=== PATIENT | female | born 1995 | race Two or more races ===

== ENCOUNTER 2022-03-10 17:45 | Emergency (ER) | payer MEDICAID ==
[~2022-03-10] VITALS: Ht 157.5 cm; Wt 58.0 kg
[2022-03-10 21:55] LABS: BASOPHILS % (AUTO) 0.4 % (0.0-2.0); HEMATOCRIT 39.9 % (36-46); HEMOGLOBIN 13.2 g/dL (12.0-16.0); LYMPHOCYTES # (AUTO) 2.6 K/uL (1.0-4.8); MEAN CORPUSCULAR HEMOGLOBIN 28.3 pg (26.0-34.0); MEAN CORPUSCULAR VOLUME 86 fL (80-100); MONOCYTES # (AUTO) 0.5 K/uL (0.1-1.0); MONOCYTES % (AUTO) 5.7 % (2.0-9.0); NEUTROPHILS # (AUTO) 4.9 K/uL (1.8-7.7); NEUTROPHILS % (AUTO) 60.9 % (40.0-70.0); PLATELET COUNT (AUTO) 433 K/uL (150-450); RED BLOOD CELL COUNT(AUTO) 4.66 MIL/uL (4.00-5.20); RED CELL DISTRIBUTION WIDTH 18.1 % (11.5-14.5)
[2022-03-10 22:14] LABS: ANION GAP 6 mmol/L (8-16); CALCIUM, TOTAL 9.1 mg/dL (8.8-10.5); CARBON DIOXIDE 31 mmol/L (22-29); CHLORIDE 98 mmol/L (98-107); CREATININE 0.79 mg/dL (0.60-1.30); GLUCOSE,RANDOM 82 mg/dL (70-110); POTASSIUM 3.3 mmol/L (3.5-5.1); SODIUM SERUM 135 mmol/L (136-145); UREA NITROGEN, BLOOD 9 mg/dL (7-18)
[2022-03-10 22:22] LABS: GLOMERULAR FILTR. RATE CALC > 60 mL/min (>60)
[2022-03-10 22:26] LABS: ALANINE AMINOTRANSFERASE 25 U/L (12-78); ALKALINE PHOSPHATASE 49 U/L (46-116); ASPARTATE AMINOTRANSFERASE 22 U/L (15-37); BILIRUBIN,TOTAL 0.3 mg/dL (0.1-1.0); HCG,QUANTITATIVE < 1 mIU/mL (0-6); TOTAL PROTEIN, SERUM 7.1 g/dL (6.4-8.2)
[2022-03-10 22:36] LABS: SALICYLATE 1.8 mg/dL (2.8-20.0)
[2022-03-10 22:37] LABS: ACETAMINOPHEN < 2 mcg/mL (10-30)
[2022-03-10 22:38] LABS: AMPHET/METH SCREEN,URINE POSITIVE (NEGATIVE); BARBITURATE SCREEN, URINE NEGATIVE (NEGATIVE); BENZODIAZEPINES SCREEN,URINE NEGATIVE (NEGATIVE); CANNABINOID SCREEN,URINE POSITIVE (NEGATIVE); COCAINE SCREEN,URINE NEGATIVE (NEGATIVE); METHADONE SCREEN, URINE NEGATIVE (NEGATIVE); OPIATE SCREEN,URINE NEGATIVE (NEGATIVE)
[2022-03-10 22:41] LABS: PHENCYCLIDINE SCREEN,URINE NEGATIVE (NEGATIVE)
[2022-03-11 03:55] VITALS: BP 113/64
[2022-03-11 04:30] LABS: COVID AG,FIA SOURCE NASAL SWAB
== END 2022-03-11 06:47 | disposition home or self-care (01) ==
LOC: EMS 17:45 → EDBD 17:45 → EMS 03-11 06:47
DX: R45.1 Restlessness and agitation (principal); Z20.822 Contact with and (suspected) exposure to COVID-19; F15.10 Other stimulant abuse, uncomplicated; F20.9 Schizophrenia, unspecified
CPT/HCPCS: 99283; 87426; 80053; 84702; 85025; 36415; 80307; G0480; 51701; G0481

== ENCOUNTER 2023-05-19 13:12 | Inpatient (IN) | payer MEDICAID ==
[~2023-05-19] VITALS: Ht 157.5 cm; Wt 97.5 kg
[2023-05-19] MEDS ORDERED: HALOPERIDOL 5 MG TABLET PO PRN (14:45)
[2023-05-19] MEDS ORDERED: ZOLPIDEM TARTRATE 10 MG TABLET PO PRN (14:45)
[2023-05-19 15:13] VITALS: RESP 18
[2023-05-19] MEDS ORDERED: INFLUENZA VIRUS VACCINE QVS 2023-24 (6MO+)/PF 60 MCG/0.5 ML SYRINGE IM. ONE (15:30)
[2023-05-19 17:47] VITALS: RESP 19
[2023-05-19 21:00] VITALS: RESP 18
[2023-05-20] VITALS (7 sets, daily range): BP systolic 111–154; BP diastolic 68–96; PULSE 100–125; RESP 16–19; TEMP 97.8–98; O2SAT 95–98
[2023-05-20] MEDS: CEPHALEXIN MONOHYDRATE 500 MG CAPSULE PO SCH ×3 (10:01→16:32)
[2023-05-20] MEDS ORDERED: QUET400T13 PO (10:09)
[2023-05-20] MEDS ORDERED: BUSP10TA23 PO (10:09)
[2023-05-20] MEDS: BusPIRone HCL 10 MG TABLET PO SCH ×2 (10:56→16:32)
[2023-05-20] MEDS ORDERED: MAGN500T4 PO (12:09)
[2023-05-20] MEDS ORDERED: CLON0.1T PO (12:09)
[2023-05-20] MEDS ORDERED: CHOL500013 PO (12:09)
[2023-05-20] MEDS ORDERED: MAG HYDROX/ALUMINUM HYD/SIMETH ES 30 ML SUSPENSION UDCUP PO PRN (12:15)
[2023-05-20] MEDS ORDERED: ONDANSETRON HCL 4 MG TABLET PO PRN (12:15)
[2023-05-20] MEDS ORDERED: ALBUTEROL SULFATE HFA 90 MCG/PUFF 8 GM INHALER IH PRN (12:15)
[2023-05-20] MEDS ORDERED: GuaiFENesin/D-METHORPHAN [SUGAR-FREE] 200-20MG/10 ML SYRUP UDCUP PO PRN (12:15)
[2023-05-20] MEDS ORDERED: IBUPROFEN 400 MG TABLET PO PRN (12:15)
[2023-05-20] MEDS ORDERED: DOCUSATE SODIUM 100 MG CAPSULE PO PRN (12:15)
[2023-05-20] MEDS ORDERED: MAGNESIUM HYDROXIDE SUSPENSION 30 ML UDCUP PO PRN (12:15)
[2023-05-20] MEDS ORDERED: NICOTINE 14 MG/24 HOUR PATCH TD PRN (12:15)
[2023-05-20] MEDS ORDERED: PETROLATUM,WHITE 28 GM JELLY TP PRN (12:15)
[2023-05-20] MEDS ORDERED: ACETAMINOPHEN 325 MG TABLET PO PRN (12:15)
[2023-05-20] MEDS ORDERED: LOPERAMIDE HCL 2 MG CAPSULE PO PRN (12:15)
[2023-05-20] MEDS ORDERED: CloNIDine HCL 0.1 MG TABLET PO PRN (12:15)
[2023-05-20] MEDS: LORazepam 2 MG TABLET PO PRN (14:35)
[2023-05-20] MEDS: QUEtiapine FUMARATE 200 MG TABLET PO SCH (20:41)
[2023-05-21] VITALS (7 sets, daily range): BP systolic 101–149; BP diastolic 68–112; PULSE 98–108; RESP 17–18; TEMP 97.5–98.3; O2SAT 95–98
[2023-05-21] MEDS: BusPIRone HCL 10 MG TABLET PO SCH ×2 (09:34→16:26)
[2023-05-21] MEDS: CEPHALEXIN MONOHYDRATE 500 MG CAPSULE PO SCH ×3 (09:34→16:37)
[2023-05-21] MEDS ORDERED: MAG HYDROX/ALUMINUM HYD/SIMETH ES 30 ML SUSPENSION UDCUP PO PRN (15:30)
[2023-05-21] MEDS ORDERED: CloNIDine HCL 0.1 MG TABLET PO PRN (15:30)
[2023-05-21] MEDS ORDERED: IBUPROFEN 600 MG TABLET PO PRN (15:30)
[2023-05-21] MEDS ORDERED: HydrOXYzine PAMOATE 50 MG CAPSULE PO PRN (15:30)
[2023-05-21] MEDS: LORazepam 2 MG TABLET PO PRN (16:23)
[2023-05-21] MEDS: CloNIDine HCL 0.1 MG TABLET PO SCH ×2 (16:26→21:25)
[2023-05-21] MEDS: QUEtiapine FUMARATE 200 MG TABLET PO SCH (20:01)
[2023-05-22] VITALS (8 sets, daily range): BP systolic 98–129; BP diastolic 60–79; PULSE 16–110; RESP 16–18; TEMP 97.9–98; O2SAT 96
[2023-05-22] MEDS: CloNIDine HCL 0.1 MG TABLET PO SCH ×4 (06:27→21:28)
[2023-05-22] MEDS: CEPHALEXIN MONOHYDRATE 500 MG CAPSULE PO SCH ×3 (09:00→17:00)
[2023-05-22] MEDS: BusPIRone HCL 10 MG TABLET PO SCH ×2 (09:00→17:00)
[2023-05-22] MEDS: QUEtiapine FUMARATE 200 MG TABLET PO SCH (21:16)
[2023-05-23 06:00] VITALS: RESP 18
[2023-05-23] MEDS: CloNIDine HCL 0.1 MG TABLET PO SCH ×4 (06:00→22:00)
[2023-05-23 07:57] LABS: HEMOGLOBIN A1C 5.4 % (3.8-5.6)
[2023-05-23] MEDS: BusPIRone HCL 10 MG TABLET PO SCH ×2 (08:10→16:46)
[2023-05-23] MEDS: CEPHALEXIN MONOHYDRATE 500 MG CAPSULE PO SCH ×3 (08:10→16:46)
[2023-05-23 08:22] LABS: THYROID STIMULATING HORMONE 1.24 uIU/mL (0.36-3.74)
[2023-05-23 08:27] VITALS: RESP 18
[2023-05-23 16:46] VITALS: BP 108/67; PULSE 103; RESP 18
[2023-05-23] MEDS: LORazepam 2 MG TABLET PO PRN (16:46)
[2023-05-23 20:03] VITALS: RESP 17
[2023-05-23] MEDS: QUEtiapine FUMARATE 200 MG TABLET PO SCH (20:14)
[2023-05-24] MEDS: CloNIDine HCL 0.1 MG TABLET PO SCH ×2 (06:00→12:41)
[2023-05-24] MEDS: CEPHALEXIN MONOHYDRATE 500 MG CAPSULE PO SCH ×2 (08:04→12:41)
[2023-05-24] MEDS: LORazepam 2 MG TABLET PO PRN (08:05)
[2023-05-24] MEDS: BusPIRone HCL 10 MG TABLET PO SCH (08:05)
[2023-05-24 10:04] VITALS: RESP 16
[2023-05-24] MEDS ORDERED: CEPH-558 PO (13:47)
[2023-05-24] MEDS ORDERED: QUET200T PO (13:47)
[2023-05-24] MEDS ORDERED: BUSP10TA23 PO ×2 (13:47→14:35)
[2023-05-24] MEDS ORDERED: QUET200T30 PO (14:35)
== END 2023-05-24 16:10 | disposition home or self-care (01) | DRG 750 ==
LOC: B2S 14:56 → B3A 05-21 14:41
PROVIDERS: ADMIT Psychiatry & Neurology Psychiatry; ATTEND Psychiatry & Neurology Psychiatry
DX: F25.0 Schizoaffective disorder, bipolar type (principal); R45.851 Suicidal ideations; F33.2 Major depressive disorder, recurrent severe without psychotic features; E55.9 Vitamin D deficiency, unspecified; F19.90 Other psychoactive substance use, unspecified, uncomplicated; F41.9 Anxiety disorder, unspecified; J45.909 Unspecified asthma, uncomplicated; Z59.00 Homelessness unspecified; Z79.899 Other long term (current) drug therapy
CPT/HCPCS: 80061; 83036; 84443; 90686; Q0162

== ENCOUNTER 2023-07-27 16:10 | Emergency (ER) | payer MEDICAID ==
[~2023-07-27] VITALS: Ht 157.5 cm; Wt 81.8 kg
[~2023-07-27 16:10] MED LIST: BUSP10TA23 PO; CEPH-558 PO; QUET200T PO; QUET200T30 PO
[2023-07-27] MEDS ORDERED: ONDANSETRON HCL 4 MG/2 ML VIAL IVP ONE ×2 (19:15→23:00)
[2023-07-27] MEDS ORDERED: SODIUM CHLORIDE 0.9% 1,000 ML IV ONE ×3 (19:15→21:30)
[2023-07-27 19:41] LABS: BASOPHILS % (AUTO) 0.8 % (0.0-2.0); EOSINOPHILS % (AUTO) 0 % (1.0-6.0); HEMATOCRIT 30.1 % (36-46); HEMOGLOBIN 9.8 g/dL (12.0-16.0); LYMPHOCYTES # (AUTO) 1.4 K/uL (1.0-4.8); LYMPHOCYTES % (AUTO) 9.2 % (22.0-44.0); MEAN CORPUSCULAR HEMOGLOBIN 24.8 pg (26.0-34.0); MEAN CORPUSCULAR HGB CONC 32.6 G/dL (31.0-37.0); MEAN CORPUSCULAR VOLUME 76 fL (80-100); MONOCYTES # (AUTO) 0.7 K/uL (0.1-1.0); MONOCYTES % (AUTO) 4.2 % (2.0-9.0); NEUTROPHILS # (AUTO) 13.5 K/uL (1.8-7.7); PLATELET COUNT (AUTO) 749 K/uL (150-450); RED BLOOD CELL COUNT(AUTO) 3.95 MIL/uL (4.00-5.20); RED CELL DISTRIBUTION WIDTH 17.2 % (11.5-14.5); WHITE BLOOD COUNT (AUTO) 15.7 K/uL (4.5-11.0)
[2023-07-27 19:43] LABS: NEUTROPHILS % (AUTO) 85.8 % (40.0-70.0)
[2023-07-27 19:48] LABS: ANION GAP 13 mmol/L (8-16); CALCIUM, TOTAL 9.9 mg/dL (8.8-10.5); CARBON DIOXIDE 28 mmol/L (22-29); CHLORIDE 96 mmol/L (98-107); CREATININE 0.56 mg/dL (0.60-1.30); GLOMERULAR FILTR. RATE CALC > 60 mL/min (>60); GLUCOSE,RANDOM 101 mg/dL (70-110); POTASSIUM 3.3 mmol/L (3.5-5.1); SODIUM SERUM 137 mmol/L (136-145); UREA NITROGEN, BLOOD 9 mg/dL (7-18)
[2023-07-27 20:07] LABS: ALANINE AMINOTRANSFERASE 11 U/L (12-78); ALBUMIN 3.1 g/dL (3.4-5.0); ALKALINE PHOSPHATASE 65 U/L (46-116); ASPARTATE AMINOTRANSFERASE 11 U/L (15-37); BILIRUBIN,TOTAL 0.3 mg/dL (0.1-1.0); C-REACTIVE PROTEIN QUANT 10.79 mg/dL (0.00-0.30); HCG,QUANTITATIVE < 1 mIU/mL (0-6); LIPASE 18 U/L (16-77); TOTAL PROTEIN, SERUM 7.6 g/dL (6.4-8.2)
[2023-07-27 20:09] LABS: ERYTHROCYTE SEDIMENTATION RATE 84 MM/HR (0-20)
[2023-07-27] MEDS ORDERED: PIPERACILLIN/TAZO 3.375 GM/D5W 50 ML IV ONE (21:30)
[2023-07-27] MEDS ORDERED: SODIUM CHLORIDE 0.9% 100 ML ONE (22:32)
[2023-07-27] MEDS ORDERED: IOHEXOL 350 MG/ML 100 ML VIAL ONE (22:32)
[2023-07-27] MEDS ORDERED: MORPHINE SULFATE 4 MG/ML SYRINGE IVP ONE (23:00)
[2023-07-27] MEDS ORDERED: POTASSIUM CHL 10 MEQ/WATER 50 ML IV ONE (23:00)
[2023-07-27 23:27] VITALS: TEMP 98.7
[2023-07-28 02:37] LABS: APPEARANCE,URINE CLEAR (CLEAR); BILIRUBIN,URINE NEGATIVE (NEGATIVE); COLOR,URINE YELLOW (YELLOW); GLUCOSE, URINE (UA) NEGATIVE (NEGATIVE); KETONES,URINE 80-100 mg/dL (NEGATIVE); LEUKOCYTE ESTERASE ,URINE NEGATIVE (NEGATIVE); NITRATE,URINE NEGATIVE (NEGATIVE); OCCULT BLOOD,URINE NEGATIVE (NEGATIVE); PROTEIN,URINE 30-70 mg/dL (NEGATIVE); UROBILINOGEN,URINE <=1.0 mg/dL (<=1.0)
[2023-07-28 02:41] LABS: ALCOHOL, URINE DRUG SCREEN NEGATIVE (NEGATIVE); AMPHET/METH SCREEN,URINE POSITIVE (NEGATIVE); BARBITURATE SCREEN, URINE NEGATIVE (NEGATIVE); BENZODIAZEPINES SCREEN,URINE NEGATIVE (NEGATIVE); CANNABINOID SCREEN,URINE POSITIVE (NEGATIVE); COCAINE SCREEN,URINE NEGATIVE (NEGATIVE); METHADONE SCREEN, URINE NEGATIVE (NEGATIVE); OPIATE SCREEN,URINE NEGATIVE (NEGATIVE); PHENCYCLIDINE SCREEN,URINE NEGATIVE (NEGATIVE)
[2023-07-28 08:13] VITALS: BP 123/89; PULSE 85; RESP 16
== END 2023-07-28 08:20 | disposition home or self-care (01) ==
LOC: EMS 16:11
DX: F25.9 Schizoaffective disorder, unspecified (principal); F19.10 Other psychoactive substance abuse, uncomplicated; R11.10 Vomiting, unspecified; F41.9 Anxiety disorder, unspecified; F32.A Depression, unspecified
CPT/HCPCS: 99285; 73701; 96365; 96375; 96361; 80053; 83690; 84702; 85025; 85651; 86140; 87040; 36415; 73610; 74177; 96368; 80307; 81003; 76856; J2270; J2405 ×2; J2543; Q9967; J3480; J7030; J7050